=== PATIENT | male | born 1970 | race African-American/Black ===

== ENCOUNTER 2018-05-02 23:27 | Emergency (ER) | payer BC ==
[2018-05-03] MEDS ORDERED: Ibuprofen TAB* 800 MG PO ONE (01:42)
[2018-05-03] MEDS ORDERED: cloNIDine TAB* 0.1 MG PO ONE (01:42)
[2018-05-03 01:47] LABS: Body Fluid Source Synovial Fluid
--- NOTE | 2018-05-03 01:55 | ED ---
Upper Extremity Pain - HPI Summary HPI Summary: Pt is a 48 y/o M presenting to the ED with a chief complaint of a bump on his L arm onset around 1-2 months ago. It grew increasingly in the last 1 month or so , and he states it does not hurt. Pt reports the arm is tingling which is why he came in. - History of Current Complaint Chief Complaint: EDExtremityUpper Stated Complaint: RIGHT ARM NUMBNESS Time Seen by Provider: 05/03/18 01:17 Hx Obtained From: Patient Mechanism Of Injury: Unknown Onset/Duration: Started Weeks Ago, Still Present Timing: Constant, Lasting Weeks Severity Initially: Mild Severity Currently: None Aggravating Factor(s): Nothing Alleviating Factor(s): Nothing Associated Signs & Symptoms: Positive: Swelling - Allergies/Home Medications Allergies/Adverse Reactions: Allergies Allergy/AdvReac Type Severity Reaction Status Date / Time No Known Allergies Allergy Verified 05/02/18 23:36 PMH/Surg Hx/FS Hx/Imm Hx Previously Healthy: Yes Endocrine/Hematology History: Denies: Hx Diabetes History: Denies: Hx Acute Renal Failure Infectious Disease History: No Infectious Disease History: Denies: Traveled Outside the [place] in Last 30 Days - Family History Known Family History: Negative: Seizure Disorder - Social History Alcohol Use: None Substance Use Type: Reports: None Smoking Status (MU): Never Smoked Tobacco Review of Systems Negative: Fever Positive: Edema - L elbow All Other Systems Reviewed And Are Negative: Yes Physical Exam - Summary Physical Exam Summary: VITAL SIGNS: Reviewed. GENERAL: Patient is a well-developed and nourished male who is lying comfortable in the stretcher. Patient is not in any acute respiratory distress. HEAD AND FACE: No signs of trauma. No ecchymosis, hematomas or skull depressions. No sinus tenderness. EYES: PERRLA, EOMI x 2, No injected conjunctiva, no nystagmus. EARS: Hearing grossly intact. Ear canals and tympanic membranes are within normal limits. MOUTH: Oropharynx within normal limits. NECK: Supple, trachea is midline, no adenopathy, no JVD, no carotid bruit, no c- spine tenderness, neck with full ROM. CHEST: Symmetric, no tenderness at palpation LUNGS: Clear to auscultation bilaterally. No wheezing or crackles. CVS: Regular rate and rhythm, S1 and S2 present, no murmurs or gallops appreciated. ABDOMEN: Soft, non-tender. No signs of distention. No rebound no guarding, and no masses palpated. Bowel sounds are normal. EXTREMITIES: Fluctuant non-tender non-warm edema over left elbow consistent with bursitis. NEURO: Alert and oriented x 3. No acute neurological deficits. Speech is normal and follows commands. SKIN: Dry and warm Triage Information Reviewed: Yes Vital Signs On Initial Exam: Initial Vitals Temp Pulse Resp BP Pulse Ox 97.9 F 78 16 185/118 98 05/02/18 23:34 05/02/18 23:34 05/02/18 23:34 05/02/18 23:34 05/02/18 23:34 Vital Signs Reviewed: Yes Procedures - Procedure Summary Procedure Summary: Aspiration of bursitis using aseptic technique. Site cleaned with alcohol, 20 gauge needle used, 15cc aspirated of hemorrhagic fluid. WIN bandage applied to L elbow. - Incision and Drainage Left Elbow Site: Left elbow Instrument(s): Needle - 20 gauge Packing: Other - no packing; WIN bandage applied Diagnostics - Vital Signs Vital Signs Temp Pulse Resp BP Pulse Ox 05/02/18 23:34 97.9 F 78 16 185/118 98 - Laboratory Lab Results: Lab Results 05/03/18 Range/Units 01:35 Fluid Source Synovial fluid Fluid Volume Pending Fluid Color Pending Fluid Appearance Pending Fluid WBC Pending Fluid RBC Pending Fluid Tot Cell Count Pending Fluid Neutrophils Pending Fluid Cell Count Rvw By Pending Lab Statement: Any lab studies that have been ordered have been reviewed, and results considered in the medical decision making process. Course/Dx - Course Course Of Treatment: Pt is a 48 y/o M presenting to the ED with a chief complaint of a bump on his L arm onset around 1-2 months ago. It grew increasingly in the last 1 month or so, and he states it does not hurt. Pt reports the arm is tingling which is why he came in. Pt's swollen area was aspirated and about 15cc of fluid came out that is being tested. Pt will be discharged home with a dx of bursitis and HTN, and instructions to follow up with his PCP and monitor his blood pressure. - Diagnoses Provider Diagnoses: Bursitis, HTN (hypertension) Discharge - Sign-Out/Discharge Documenting (check all that apply): Patient Departure Patient Received Moderate/Deep Sedation with Procedure: No - Discharge Plan Condition: Stable Disposition: HOME Prescriptions: Ibuprofen TAB* [Motrin TAB* 800 MG] 800 mg PO Q6H #30 tab Lisinopril 10 mg PO DAILY #30 tablet Patient Education Materials: Elbow Bursitis (ED), Chronic Hypertension (ED) Referrals: [facility] [place] [facility] [Outside] Additional Instructions: PLEASE MONITOR BLOOD PRESSURE AND TAKE PRESCRIBED MEDICATIONS INSTRUCTED. FOLLOW UP WITH YOUR PRIMARY CARE PROVIDER REFERRED IN THE NEXT 1-2 DAYS. RETURN TO THE EMERGENCY DEPARTMENT WITH NEW OR WORSENING SYMPTOMS. - Billing Disposition and Condition Condition: STABLE Disposition: Home - Attestation Statements Document Initiated by Jessica: Yes Documenting Scribe: Tania Dickson Provider For Whom Jessica is Documenting (Include Credential): Gil Edmondson MD. Scribe Attestation: Tania Hong scribed for Gil Edmondson MD. on 05/03/18 at 0613. Scribe Documentation Reviewed: Yes Provider Attestation: The documentation as recorded by the Tania valencia accurately reflects the service I personally performed and the decisions made by Celestine huggins MD. Status of Scribe Document: Viewed
[2018-05-03 02:57] LABS: Body Fluid Mono 70 %
== END 2018-05-03 03:03 | disposition home or self-care (01) ==
LOC: ED 23:27
DX: M71.9 Bursopathy, unspecified (principal); R60.9 Edema, unspecified; I10 Essential (primary) hypertension
CPT/HCPCS: 36415; 87070; 87205; 89051; 89060; 99283; A9270-GY